=== PATIENT | female | born 1950 | race Caucasian/White ===

== ENCOUNTER 2017-11-04 07:36 | Inpatient (IN) ==
[2017-11-04] MEDS ORDERED: Acetaminophen IV 1,000 MG/100 ML INFUS..BTL IVPB ONE (07:52)
[2017-11-04] MEDS ORDERED: Famotidine 20 MG/2 ML VIAL IVP ONE (07:52)
[2017-11-04] MEDS ORDERED: Pregabalin 75 MG CAPSULE PO ONE (07:52)
[2017-11-04] MEDS ORDERED: Ringers Solution, Lactated 1,000 ML IVC SCH ×2 (08:15→14:35)
[2017-11-04] MEDS ORDERED: CeFAZolin Syr 2,000MG/20 ML 2,000 MG/20 ML SYRINGE IVPB ONE (08:15)
--- NOTE | 2017-11-04 08:56 | Anesthesia Evaluation PreOp ---
Date of Encounter: 11/04/17 Time of Encounter: 09:00 - Past History Planned Operation: Total Shoulder Reverse RT Cardiac History: Hyperlipidemia Pulmonary History: Denies Any Significant HX CROSS TIE CUTTER History: Denies Any Significant HX Other Medical History: Denies Any Significant HX Anesthesia History: No Prior Anesthetic Complications : No Alcohol Use: none Drug use: none Medications and Allergies Atorvastatin [Lipitor] 10 mg PO HS 11/04/17 [History] Ondansetron [Zofran] 8 mg PO Q8H PRN 11/04/17 [History] Tramadol HCl [Ultram] 50 mg PO BID PRN 11/04/17 [History] 3 Allergy/AdvReac Type Severity Reaction Status Date / Time No Known Allergies Allergy Verified 11/04/17 08:08 - Meds/Allergy Pre-op Review Medications Reviewed: Yes Allergies Reviewed: Yes Beta Blockers on Current Med List: No Anesthesia Results - Labs Laboratory Tests 10/27/17 10/27/17 09:32 09:32 Hgb 12.1 Hct 38.8 Plt Count 282 Sodium 139 Potassium 3.2 L BUN 22 Creatinine 0.83 Anesthesia Exam O2 Sat Height 1.7 m Height 1.7 m Height 1.7 m Weight 83.007 kg Weight 83.007 kg Weight 83.007 kg O2 Sat by Pulse Oximetry 96 Vital Signs Temp Pulse Resp BP Pulse Ox 97.5 F L 83 18 152/76 96 11/04/17 08:01 11/04/17 08:01 11/04/17 08:01 11/04/17 08:01 11/04/17 08:01 Height: 5'7 Weight: 183 lbs NPO (# of Hours): MN Pain Scale: 0 - HEENT Pupil (Motor): Pupils equal, EOMI Mallampati: II Teeth: Normal Oral Opening: Greater than 3 - CROSS TIE CUTTER LOC: Oriented CROSS TIE CUTTER Motor: Normal RUE, Normal LUE, Normal RLE, Normal LLE, Normal Face CROSS TIE CUTTER Sensory: Normal: RUE, LUE, RLE, LLE, Face - Cardiac Rhythm: Regular Murmur: None JVD: No Carotid Bruit: No - Pulmonary Breath Sounds: bilateral Clear Respiratory Effort: Symmetrical Anesthesia Assess/Plan ASA Score: 2 Modified Colin Scale for Level of Consciousness: Cooperative, oriented, and tranquil Anesthetic Plan: General, Regional Monitoring Plan: Standard Monitors Recovery Plan: PACU (Discussed GA and RA, agrees to proceed)
[2017-11-04] MEDS ORDERED: *HR* Midazolam HCl 2 MG/2 ML VIAL ONE (09:31)
[2017-11-04] MEDS ORDERED: *HR* FentaNYL (PF) 100 MCG/2 ML VIAL ONE (09:32)
[2017-11-04] MEDS ORDERED: Tetracaine/PF 20 MG/2 ML AMPUL ONE (09:34)
[2017-11-04] MEDS ORDERED: ROPIVACAINE HCL/PF 0.5% 30 ML VIAL ONE (09:34)
--- NOTE | 2017-11-04 09:38 | History & Physical Report ---
Date of Encounter: 11/04/17 Time of Encounter: 09:38 24 Hour HP Update - Instructions Instructions: If the History and Physical is less than 30 days old and was completed prior to A.M. admission and or procedure and has NOT been updated on calendar day of procedure please complete this update prior to performing procedure. - Update Patient reports changes in Medical Condition: No Changes in examination, assessment, or condition: No Changes in Medication: No Preop tests/diagnostics Reviewed: Yes Surgery Remains Indicated: Yes Consent for Planned Operative Procedure(s) Verified: Yes
[2017-11-04] MEDS ORDERED: Lidocaine -MPF 2% 2 ML VIAL ONE (09:39)
[2017-11-04] MEDS ORDERED: *HR* Propofol 200 MG/20 ML VIAL IVP ONE (09:39)
[2017-11-04] MEDS ORDERED: Lidocaine -MPF 4% 5 ML AMPUL ONE (09:54)
--- NOTE | 2017-11-04 10:11 | Anesthesia Procedures ---
Date of Encounter: 11/04/17 Time of Encounter: 08:55 Procedures: Anesthesia - Nerve Block Procedure Date: 11/04/17 Time: 10:00 Pre-op Diagnosis: Fracture Rt Shoulder Surgical Procedure: Reverse Total Shoulder Replacement Checklist: Correct Patient Identifier Correct side: Right Blood Thinner: No Monitor Applied: EKG, BP, Pulse Oximetry Supplemental Oxygen via Nasal Cannula (L/min): 2 Sedation: Versed (mg): 2 Sedation: Fentanyl (mcg): 100 Indication: Post Op Analgesia Pre-op Neuro Deficits: No Block Type: Supraclavicular Catheter placed: No Depth at skin (cm): 2 Sterile Technique: Yes Ultrasound used: Yes Anatomy identified: Yes Visual spread of Local: Yes Neuro Stimulation: No Blood on Needle Aspiration: No Smooth Injection of Local: Yes Pain with Injection of Local: No Prep: Chlorhexadine Needle: 22 x 50 mm Stimuplex Local: Tetracaine (20mg), Ropivacaine (0.5%), Other (Dexamethasone 12.5 mg) Volume (cc): 30 Number of Attempts: 1 Complications: None/effective block Vitals: Vital Signs/O2 Sat/Glucose, Most Current Temp Pulse Resp BP Pulse Ox 11/04/17 08:01 97.5 F L 83 18 152/76 96
[2017-11-04 10:14] LABS: Prothrombin Time 10.9 Seconds (9.4-12.1)
[2017-11-04] MEDS ORDERED: Tranexamic Acid 1,000 MG/10 ML VIAL ONE (10:24)
[2017-11-04] MEDS ORDERED: EPHEDrine 50 MG/ML VIAL ONE (10:35)
[2017-11-04] MEDS ORDERED: *HR* PHENYLEPHRINE 1,000 MCG/10 ML SYRINGE IVP ONE (10:36)
[2017-11-04] MEDS ORDERED: Dexamethasone 4 MG/ML VIAL ONE (10:41)
[2017-11-04] MEDS ORDERED: Ondansetron 4 MG/2 ML VIAL ONE (10:41)
[2017-11-04] MEDS ORDERED: MORPHINE SUL Oral CONC 10 MG/0.5 ML ORAL.SYG SL PRN (11:01)
[2017-11-04] MEDS ORDERED: *HR* OxyCODONE Immed Rel 5 MG TABLET PO PRN (11:01)
[2017-11-04] MEDS ORDERED: *HR* Succinylcholine 200 MG/10 ML VIAL IVP ONE (12:31)
--- NOTE | 2017-11-04 13:47 | Orthopedic Operative Note ---
Date of procedure: 11/04/17 Procedure: Procedure: Right reverse total shoulder for fracture with tuberosity repair Preoperative Diagnosis: Right shoulder proximal humerus fracture Post operative Diagnosis: Same Surgeon: Angelito Abel MD Complications: None EBL: 150 cc Anesthesia: General with interscalene block Components used: Tornier Aequalis Flex 5B PTC Stem, Centered +0 tray, 36+6 mm polyethylene, 25 mm standard post baseplate, 36x25 mm lateralized +4 glenosphere Indications: This is a 67 yo F who had a mechanical fall and sustained a displaced four part right proximal humerus fracture with a head split confirmed on CT scan. She presented to the office following the injury and exam showed her to be neurovascularly intact with strong radial pulse and sensation and motor intact over axillary, median, radial, and ulnar nerves. Operative and non -operative treatment options were discussed with the patient, and the patient has elected for a right reverse shoulder replacement with tuberosity repair. The risks and benefits of the procedure were fully explained to the patient. These risks include, but are not limited to, the risk of infection, neurovascular injury, continued pain and stiffness of the shoulder, need for further surgery, DVT, PE, loss of limb and loss of life. The patient did understand all of these risks and wishes to proceed. Informed consent was then obtained. Operative procedure: The patient was brought back to the OR suite by the anesthesia staff. The patient was then placed supine on the operating table and all bony prominences were padded. The anesthesiologist then performed successful general anesthetic for the remainder of the case. The head, neck and airway were secured and protected by anesthesia. The bed was elevated about 30 degrees. The right upper extremity was then prepped and draped in the normal sterile orthopedic fashion and placed in the Trimano arm sagastume. Preoperative antibiotics were then given prior to incision. A timeout was performed confirming the correct patient, site and side, procedure to be performed and any allergies. All were in agreement and we did proceed. A standard deltopectoral approach was performed. We dissected down through the skin coagulating any bleeders that were encountered. The cephalic vein was identified and taken laterally with the deltoid. Adhesions were cleared from underneath the deltoid and a brown retractor was placed. Interval between the deltoid and pectoralis was developed and a kolbel retractor was placed. A Darrach retractor was placed under the acromion. The biceps tendon was exposed and identified and then released proximally into the rotator interval. Soft tissue tenodesis of the remaining biceps tendon was then performed. The lateral border of the conjoint tendon was then identified and the fracture of the lesser tuberosity, humeral head and greater tuberosity fragments were identified. The lesser tuberosity fragment was off humeral shaft, this was retracted with a traction stitch exposing the humeral head. The humeral head was then removed with a pointed reduction clamp. Head split was confirmed. 0 Vicryl was then used to tag the greater tuberosity and was used as a traction suture. Bony debris was removed from the proximal humerus. Attention was then turned to the glenoid. The humerus was subluxed posteriorly and retractors were placed in the anterior and posterior aspects of the glenoid. A 360 degree release of the subscapularis was performed and the axillary nerve was palpated and protected throughout the case. Labral debridement was then performed. A central guide pin was placed in the appropriate position on the glenoid with 10 degrees of inferior tilt. Reamer was used over the guidepin and then a central drill hole was made in accordance with the Aequalis reverse system. The baseplate was impacted in place and the remaining peripheral drill holes were drilled and the appropriate length screws were placed, 2 in compression, 2 locking. The glenosphere was then inserted and locked into place with the locking screw. Attention was turned back to the humerus. 4 Looped fiber wire sutures were then placed around the greater tuberosity. The humerus was subluxed back anteriorly and was reamed and broached up to a size 5 stem. A trial humeral stem and cup were placed. Trial reduction was then performed to make sure we could reduce the humerus. The size 5 Aequalis stem was then press fit in place , using the greater tuberosity as a guide to our humeral height. We trialed the humeral cup and tray ensuring we had adequate stability. We also ensured the greater and lesser tuberosity could be reduced to the stem. 2 drill holes were placed in the humeral shaft and #2 FiberWire was passed through these to be used as a parachute stitch. The final size +6 humeral polyethylene with a neutral tray was placed. 2 of the previous looped FiberWire sutures from the greater tuberosity were passed through the subscapularis and medial to the stem and the remaining looped FiberWire sutures were passed medial to the stem and the shoulder was reduced. The tuberosities were then reduced and held in place and tied back to the humeral shaft with the aforementioned FiberWire sutures in a cerclage fashion. The shoulder was taken through range of motion to ensure stability of the prosthesis and tuberosity repair. #2 FiberWire that is been passed through the shaft was then brought up through the superior aspect of the greater tuberosity and tied down. The wound was then copiously irrigated, the deltopectoral interval was tagged with 2-0 Surgilon, and the incision was closed with 2-0 strata fix deep and running 3-0 strata fix subcuticular. Sterile dressing was placed, the patient was placed in a sling and taken to PACU in stable condition. There were no complications during the case. Postoperative plan: Range of motion of the shoulder will be held to aid in tuberosity healing. Okay for range of motion of the hand wrist and elbow. Was there an diver assistant present: No Estimated blood loss (cc): 150
[2017-11-04] MEDS ORDERED: Ondansetron 4 MG/2 ML VIAL IVP PRN (14:35)
[2017-11-04] MEDS ORDERED: Naloxone 0.4 MG/ML INJ IVP PRN (14:35)
[2017-11-04] MEDS ORDERED: Sennosides 8.6 MG TABLET PO PRN (14:35)
[2017-11-04] MEDS ORDERED: Temazepam 15 MG CAPSULE PO PRN (14:35)
[2017-11-04] MEDS ORDERED: MOM Conc 10 ML UD.LIQ PO PRN (14:35)
--- NOTE | 2017-11-04 15:12 | Anesthesia Evaluation Post Op ---
Date of Encounter: 11/04/17 Time of Encounter: 15:11 - Vital Signs Vital Signs: Vital Signs/O2 Sat, Most Current Temp Pulse Resp BP Pulse Ox 97.5 F L 79 16 144/75 95 11/04/17 15:05 11/04/17 15:05 11/04/17 15:05 11/04/17 15:05 11/04/17 15:05 - Lungs Lungs: Clear Ascult./Percussion - Airway Airway: Non-obstructed - Cardiovascular Regular Rate - Mental Status Mental Status: Alert & Oriented, Answers Appropriately - Nausea Vomiting Nausea Vomiting: Not Present - Hydration Hydration: Ice chips - Discharge PostOp Status: Transfer Patient to floor
[2017-11-04] MEDS: ceFAZolin 2,000 MG in D5% in Water 100 ML IVPB SCH (15:21)
[2017-11-05] MEDS: ceFAZolin 2,000 MG in D5% in Water 100 ML IVPB SCH (00:08)
[2017-11-05] MEDS: *HR* OxyCODONE/APAP 5/325 TABLET PO PRN ×2 (03:42→17:07)
[2017-11-05] MEDS: *HR* OxyCODONE Immed Rel 5 MG TABLET PO PRN ×2 (05:53→09:56)
[2017-11-05 07:28] LABS: Hematocrit 28.6 % (35.3-44.9); Hemoglobin 9.3 g/dL (11.5-15.4)
[2017-11-05] MEDS: traMADol 50 MG TABLET PO PRN ×2 (07:29→13:45)
--- NOTE | 2017-11-05 11:38 | Orthopedics Progress Note ---
Date of Encounter: 11/05/17 Time of Encounter: 11:35 Subjective Interval history: S: Doing ok first day s/p R reverse TSA for fracture. Shoulder pain present with the block worn off. No numbness or tingling. No CP or SOB. No fevers or chills. AFVSS GEN: NAD, AAOx3 RUE: Dressing c/d/i No erythema Sensation intact to light touch over axillary, median, radial and ulnar nerves 2+ radial pulse A/P: POD#1 s/p R reverse TSA for fracture -Hold PT for tuberosity healing, continue sling -Continue PO pain control and lidoderm patch -Reassess this afternoon, discharge when pain controlled Objective Vital signs: Vital Signs Temp Pulse Resp BP Pulse Ox 11/05/17 11:20 98.5 F 73 16 147/68 95 11/05/17 07:13 98.2 F 73 20 127/66 97 11/05/17 03:52 98.3 F 76 14 136/66 96 11/05/17 00:01 98.3 F 78 16 111/47 96 11/04/17 18:33 98.5 F 88 18 125/71 96 11/04/17 17:25 87 16 154/75 97 11/04/17 16:43 97.5 F L 80 16 151/75 96 11/04/17 15:22 97.6 F 76 16 132/69 96 11/04/17 15:05 97.5 F L 79 16 144/75 95 11/04/17 14:39 97.5 F L 80 16 145/72 95 11/04/17 14:01 97.5 F L 76 16 140/70 95 11/04/17 13:51 97.5 F L 80 16 134/68 95 11/04/17 13:41 79 14 130/69 95 11/04/17 13:31 81 16 126/68 95 11/04/17 13:21 97.5 F L 85 20 113/67 96 Intake and Output 11/04/17 11/05/17 11/05/17 23:59 07:59 15:59 Intake Total 180 / 180 1440 / 1440 360 / 360 Output Total 0 / 0 Balance 180 / 180 1440 / 1440 360 / 360 Intake: IV Fluids 1100 / 1100 Lactated Ringers 1,000 ML @ 75 1000 / 1000 mls/hr IVC .[id number] [facility] Rx#: [id number] Ancef 2,000 MG In Dextrose 5% 100 / 100 100 ML @ 200 mls/hr IVPB Q8HR [facility] Rx#:[id number] Oral 180 / 180 340 / 340 360 / 360 Output: Urine 0 / 0 Other: Meal Dinner Breakfast Percent of Meal Consumed 75% 20% # Voids 1 1 - Labs CBC & BMP: 11/05/17 06:13 Labs: Abnormal lab results Hgb 9.3 g/dL (11.5-15.4) L 11/05/17 06:13 Hct 28.6 % (35.3-44.9) L 11/05/17 06:13 - VTE Documentation of Mechanical Device: Intermittent pneumatic compression device Consult Discharge Plan - Plan Referrals: Meghann Delgado, RUST PROOFER [Primary Care Provider] -
[2017-11-05] MEDS: Aspirin Enteric Coated 325 MG Tablet PO SCH ×2 (12:01→20:36)
[2017-11-05] MEDS: *HR* Morphine Sulfate SR (12 HR) 15 MG TABLET.ER PO SCH ×2 (12:01→15:55)
[2017-11-05] MEDS ORDERED: *HR* Morphine Sulfate SR (12 HR) 15 MG TABLET.ER PO SCH (18:00)
[2017-11-06] MEDS: *HR* Morphine Sulfate SR (12 HR) 15 MG TABLET.ER PO SCH ×2 (00:35→04:59)
[2017-11-06 03:06] LABS: Hemoglobin 9.2 g/dL (11.5-15.4)
[2017-11-06 08:01] VITALS: BP 137/73
[2017-11-06] MEDS: Aspirin Enteric Coated 325 MG Tablet PO SCH (08:21)
[2017-11-06] MEDS: *HR* OxyCODONE/APAP 5/325 TABLET PO PRN (08:22)
--- NOTE | 2017-11-06 08:54 | Orthopedics Progress Note ---
Date of Encounter: 11/06/17 Time of Encounter: 08:53 Subjective Interval history: S: Doing well s/p R reverse TSA for fracture. Shoulder pain much improved. No numbness or tingling. No CP or SOB. No fevers or chills. AFVSS GEN: NAD, AAOx3 RUE: Dressing c/d/i No erythema Sensation intact to light touch over axillary, median, radial and ulnar nerves 2+ radial pulse A/P: POD#2 s/p R reverse TSA for fracture -Hold PT for tuberosity healing, continue sling -Continue PO pain control and lidoderm patch -D/c today Objective Vital signs: Vital Signs Temp Pulse Resp BP Pulse Ox 11/06/17 07:56 100 F H 84 16 137/73 90 11/05/17 23:10 99.4 F 98 16 126/68 92 11/05/17 18:33 98.6 F 93 16 117/63 95 11/05/17 15:52 98.9 F 78 18 131/70 97 11/05/17 11:20 98.5 F 73 16 147/68 95 - Labs CBC & BMP: 11/06/17 01:35 Labs: Abnormal lab results Hgb 9.2 g/dL (11.5-15.4) L 11/06/17 01:35 Hct 29.0 % (35.3-44.9) L 11/06/17 01:35 - VTE Documentation of Mechanical Device: Intermittent pneumatic compression device Consult Discharge Plan - Plan Referrals: Meghann Delgado, TILTING SAW OPERATOR [Primary Care Provider] -
--- NOTE | 2017-11-06 08:56 | Discharge Summary ---
Orders not resulted at time of discharge: Pending orders 11/04/17 US anesthesia pain block [US] Routine 11/04/17 12:55 Surgical Pathology [PTH] Routine Date of Encounter: 11/06/17 Time of Encounter: 08:54 - Hospital Course Hospital course: Ms. Armendariz is a 67 year old female admitted post operatively for pain control following a right reverse TSA for fracture on 11/04/17. She did well following surgery and was able to ambulate and do elbow, wrist and hand therapy with PT following surgery. She was discharged in stable condition to home on 11/06/17. - Time Spent with Patient Total time spent providing and/or coordinating discharge services: - Discharge Medications Home Medications: Atorvastatin [Lipitor] 10 mg PO HS 11/04/17 [History] Ondansetron [Zofran] 8 mg PO Q8H PRN 11/04/17 [History] Tramadol HCl [Ultram] 50 mg PO BID PRN 11/04/17 [History] Allergies/Adverse Reactions: 3 Allergy/AdvReac Type Severity Reaction Status Date / Time No Known Allergies Allergy Verified 11/04/17 08:08 Date of admission: 11/04/17 14:19 Primary care physician: Meghann Delgado CNP Consults: 11/04/17 14:34 Consult to Pastoral Services [CONS] Routine Comment: 11/04/17 14:35 Consult to Occupational Therapy [CONS] Routine Comment: post shoulder surgery Reason for Consult: post shoulder surgery Does patient have active BEDREST order?: No Is patient medically & hemodynamically stable?: Yes Consult to Physical Therapy [CONS] Routine Comment: post shoulder surgery Reason for Consult: post shoulder surgery Does patient have active BEDREST order?: No Is patient medically & hemodynamically stable?: Yes RT Post Op Consult [CONS] Routine 11/05/17 10:47 Consult to Vending Machine Technician [CONS] Routine Reason for SW Consult: Discharge planning - VTE Documentation of Mechanical Device: Intermittent pneumatic compression device Labs on day of discharge: Labs from last 24 hours 11/06/17 01:35 Hgb 9.2 L Hct 29.0 L - Impressions ITS Impressions Shoulder X-Ray 11/04/17 00:00 IMPRESSION: Status post reverse right total shoulder arthroplasty. No unexpected retained radiopaque foreign body is seen. D/ / 11/04/2017 13:19:13 Barron Rowe MD / kiara Interpreting Provider: Barron Rowe MD Shoulder X-Ray 11/04/17 00:00 IMPRESSION: Status post reverse right shoulder replacement surgery. Patient has sustained recent comminuted right humeral head/neck fracture. D/ / 11/04/2017 14:02:30 Sage Wyatt MD / kiara Interpreting Provider: Sage Wyatt MD Fluoroscopy 11/04/17 12:00 IMPRESSION: Intraprocedural fluoroscopic spot image as above. See separate procedure report for more information. D/ /04/2017 16:59:39 Elliot Collins MD / kiana Interpreting Provider: Elliot Collins MD Shoulder X-Ray 11/04/17 12:00 IMPRESSION: Intraprocedural fluoroscopic spot image as above. See separate procedure report for more information. D/ : / 11/04/2017 16:59:39 Elliot Collins MD / kiana Interpreting Provider: Elliot Collins MD - Patient Status Disposition: Home, Self-Care Condition: Good Functional capacity at discharge: independent ambulation Overall status at discharge: patient is progressing back to baseline - Discharge Instructions Follow Up With: Meghann Delgado, LEASING MANAGER [Primary Care Provider] - - Diet and Activity Activity: as per physical therapy Diet: advance to your usual diet
[2017-11-06] MEDS: *HR* OxyCODONE Immed Rel 5 MG TABLET PO PRN (12:24)
== END 2017-11-06 12:35 | disposition home or self-care (01) | DRG 483 ==
LOC: SAMDAY 07:36 → 3NENU 14:14
PROVIDERS: ADMIT Orthopaedic Surgery Sports Medicine; ATTEND Orthopaedic Surgery Sports Medicine